=== PATIENT | male | born 1945 | race Caucasian/White ===

== ENCOUNTER 2023-07-04 09:53 | Observation (INO) ==
[2023-07-04 11:15] LABS: ABS Lymphocytes 0.7 10^3/uL (1.0-4.8); ABS Monocytes 0.9 10^3/uL (0.0-1.1); Eosinophil % 0.2 %; Hematocrit 38.9 % (38-53); Hemoglobin 13.1 g/dL (13.2-16.3); Lymphocyte % 10.3 %; Mean Corpuscular Hemoglobin 31.4 pg (27-33); Mean Corpuscular Hgb Conc 33.7 g/dL (31-36); Mean Corpuscular Volume 93.2 fL (80-97); Mean Platelet Volume 6.7 fL (7.5-11.2); Platelet Count 512 10^3/uL (150-450); Red Blood Count 4.17 10^6/uL (4.06-5.63); White Blood Count 6.5 10^3/uL (3.6-10.2)
[2023-07-04 11:41] LABS: Activated Partial Thrombo Time 29.9 seconds (26.0-38.0); INR 1.2 (0.83-1.13)
[2023-07-04 11:50] LABS: Albumin 4.2 g/dL (3.2-5.2); Albumin/Globulin Ratio 1.7 (1-3); Calcium 8.9 mg/dL (8.6-10.3); Creatinine, Serum 0.69 mg/dL (0.67-1.17); Globulin 2.5 g/dL (2-4); Magnesium 2.1 mg/dL (1.9-2.7); Potassium 4.1 mmol/L (3.5-5.0); Total Bilirubin 0.9 mg/dL (0.2-1.0); Total Protein 6.7 g/dL (6.4-8.9); eGFR CKD-EPI 94.1 (>60)
[2023-07-04] MEDS: Albuterol HFA INHALER 8 gm MDI INH ONE (12:18)
[2023-07-04] MEDS: NS 0.9% 1000 ml BAG 1,000 ML IV ONE (12:21)
[2023-07-04] MEDS: Nicotine PATCH 14 MG/24 HR PATCH TRANSDERM ONE (12:21)
[2023-07-04] MEDS: Acetaminophen IV 1 GM/100ML 1,000 MG/100 ML BAG IV ONE (12:21)
[2023-07-04 12:50] LABS: Urine Appearance Clear; Urine Bilirubin Negative (Negative); Urine Blood Negative (Negative); Urine Color Light-Yellow; Urine Glucose Negative (Negative); Urine Ketones Negative (Negative); Urine Nitrite Negative (Negative); Urine Protein Negative (Negative); Urine Specific Gravity 1.008 (1.002-1.030); Urine Urobilinogen 1+ (Negative)
[2023-07-04] MEDS: Iohexol 350 (CONTRAST) 500 ML MDV IV ONE (13:42)
[2023-07-04] MEDS ORDERED: Albuterol HFA INHALER 8 gm MDI INH PRN (15:54)
[2023-07-04] MEDS: methylPREDNISolone SOD SUCC 125 mg 2 ML VIAL IV ONE (17:38)
[2023-07-04] MEDS: Enoxaparin 40 MG/0.4 ML SYR SUBCUT SCH (17:40)
[2023-07-04] MEDS: Lactated Ringers 1000 ml BAG 1,000 ML IV ONE (17:40)
[2023-07-04 19:12] LABS: INR 1.26 (0.83-1.13)
[2023-07-04] MEDS: Mometasone/Formoter 100/5 MDI INH SCH (19:40)
[2023-07-04] MEDS: Remdesivir 100 mg Vial 200 MG in NS 0.9% 250 ml 210 ML IV ONE (19:45)
[2023-07-04 20:45] LABS: Osmolality Serum 269 mOsm/kg (275-295)
[2023-07-04] MEDS: guaiFENesin 100 mg/5 ml LIQ unit dose cup PO PRN (21:11)
[2023-07-05 06:40] LABS: ABS Lymphocytes 0.6 10^3/uL (1.0-4.8); ABS Monocytes 0.6 10^3/uL (0.0-1.1); ABS Neutrophils 5.8 10^3/uL (1.5-7.6); Hematocrit 37.6 % (38-53); Lymphocyte % 8.8 %; Mean Corpuscular Hemoglobin 32.2 pg (27-33); Mean Corpuscular Hgb Conc 34.7 g/dL (31-36); Mean Corpuscular Volume 92.9 fL (80-97); Mean Platelet Volume 6.5 fL (7.5-11.2); Platelet Count 515 10^3/uL (150-450); Red Blood Count 4.05 10^6/uL (4.06-5.63); Red Cell Distribution Width 13.1 % (12-17)
[2023-07-05 06:49] LABS: INR 1.29 (0.83-1.13)
[2023-07-05 07:16] LABS: Albumin 3.8 g/dL (3.2-5.2); Albumin/Globulin Ratio 1.6 (1-3); Calcium 8.6 mg/dL (8.6-10.3); Creatinine, Serum 0.57 mg/dL (0.67-1.17); Globulin 2.4 g/dL (2-4); Total Bilirubin 0.6 mg/dL (0.2-1.0); Total Protein 6.2 g/dL (6.4-8.9); eGFR CKD-EPI 99.7 (>60)
[2023-07-05] MEDS: Albuterol/Ipratropium NEB.SOL (2.5/0.5 MG) 3 ML NEB.SOLN INH PRN (16:13)
[2023-07-05] MEDS: Remdesivir 100 mg Vial 100 MG in NS 0.9% 250 ml 230 ML IV SCH (20:02)
[2023-07-06 07:47] LABS: INR 1.42 (0.83-1.13)
[2023-07-06 09:48] LABS: Albumin 3.9 g/dL (3.2-5.2); Albumin/Globulin Ratio 1.9 (1-3); Calcium 8.5 mg/dL (8.6-10.3); Creatinine, Serum 0.53 mg/dL (0.67-1.17); Globulin 2.1 g/dL (2-4); Potassium 3.7 mmol/L (3.5-5.0); Total Bilirubin 0.7 mg/dL (0.2-1.0); eGFR CKD-EPI 101.9 (>60)
[2023-07-06 10:06] LABS: Ferritin 53.9 ng/mL (24-336)
[2023-07-06 15:05] VITALS: BP 132/68
== END 2023-07-06 17:30 | disposition home health service (06) ==
LOC: EDHOLD 09:53 → ED 09:53 → SUATTDRO 15:51 → MEDTELE 17:01
PROVIDERS: ADMIT Internal Medicine; ATTEND Hospitalist